=== PATIENT | female | born 1945 | race Caucasian/White ===

== ENCOUNTER 2018-12-27 12:58 | Day surgery (SDC) | payer OTHER ==
[2018-12-22 12:14] VITALS: BMI 29.0
[2018-12-27] MEDS: CYCLOPENTOLATE HCL 1% OPHTH SOLN 2 ML BOTTLE ONE ×2 (13:30→13:35)
[2018-12-27] MEDS: PHENYLEPHRINE 2.5% OPHTH SOLN 15 ML BOTTLE ONE ×3 (13:30→13:45)
[2018-12-27] MEDS: TROPICAMIDE 1% OPHTH SOLN 15 ML BOTTLE ONE ×3 (13:30→13:45)
[2018-12-27] MEDS: OFLOXACIN 0.3% OPHTHALMIC SOLUTION 5 ML BOTTLE ONE ×4 (13:30→13:45)
[2018-12-27] MEDS: KETOROLAC TROMETHAMINE 0.5% EYE DROP 1 DROP DROPS ONE ×3 (13:30→13:45)
[2018-12-27] MEDS ORDERED: TROPICAMIDE 1% OPHTH SOLN 15 ML BOTTLE OS ONE (13:40)
[2018-12-27] MEDS ORDERED: CYCLOPENTOLATE HCL 1% OPHTH SOLN 2 ML BOTTLE OS ONE ×2 (13:40→13:45)
[2018-12-27] MEDS ORDERED: PHENYLEPHRINE 2.5% OPHTH SOLN 15 ML BOTTLE OS ONE (13:40)
[2018-12-27] MEDS ORDERED: KETOROLAC TROMETHAMINE 0.5% EYE DROP 1 DROP DROPS OS ONE (13:40)
[2018-12-27] MEDS ORDERED: ACETAMINOPHEN 325 MG TABLET (FP) PO PRN (13:57)
[2018-12-27] MEDS ORDERED: BACITRACIN/POLYMYXIN OPH OINT 3.5 GM TUBE ONE (15:19)
[2018-12-27] MEDS ORDERED: EPI-SHUGARCAINE (EPINEPHRINE 0.025% & LIDOCAINE-PF 0.75%) 4ML ONE (15:19)
[2018-12-27] MEDS ORDERED: BETAXOLOL HCL 0.25% OPHTHALMIC 10 ML DROPSBTL ONE (15:19)
[2018-12-27] MEDS ORDERED: LIDOCAINE HCL/PF 2% SDV 5ML VIAL ONE (15:20)
[2018-12-27] MEDS ORDERED: BUPIVACAINE HCL/PF 0.5% (5MG/ML) 10 ML VIAL ONE (15:20)
[2018-12-27] MEDS ORDERED: ACETYLCHOLINE 1:100 INTRA-OCUL 20 MG/2 ML KIT ONE (15:20)
[2018-12-27] MEDS ORDERED: NEO/POLYMYX B SULF/DEXAMETH OPHTHALMIC 5ML BOTTLE ONE (15:20)
[2018-12-27] MEDS ORDERED: TETRACAINE 0.5% OPHTH SOLN 2 ML BOTTLE ONE (15:20)
[2018-12-27] MEDS ORDERED: LIDOCAINE HCL 2% JELLY 10 ML CARTRIDGE ONE (15:20)
[2018-12-27] MEDS ORDERED: MIDAZOLAM HCL 2 MG/2 ML SINGLE DOSE VIAL ONE (15:40)
[2018-12-27] MEDS ORDERED: PROPOFOL 20 ML ONE (15:46)
[2018-12-27] MEDS ORDERED: BSS (NA/CA/MG/K) BALANCED SALT SOLUTION OPHTH SOLN 15 ML BOTTLE ONE (15:57)
--- NOTE | 2018-12-27 17:01 | OP ---
DATE OF OPERATION: 12/27/2018 PROCEDURE: Planned extracapsular cataract extraction, phacoemulsification, insertion of posterior chamber lens implant, left eye. SURGEON: Aj Agustin MD AEMT SURGEON: Aj Agustin MD ANESTHESIA: Local with standby. ANESTHESIOLOGIST: Unknown at this point. PREOPERATIVE DIAGNOSIS: Mature cataract, left eye. POSTOPERATIVE DIAGNOSIS: Mature cataract, left eye. FINDINGS/PROCEDURE: After successful peribulbar anesthesia was given in the operating room, the patient was prepped and draped in the usual manner to expose the left eye. The lid speculum was inserted after the Tegaderm strips were placed on the lashes and the operating room microscope brought into position over the left eye. A superior fornix-based flap was then fashioned for 12 mm using Abbi scissors and 0.12 forceps and hemostasis with Wet-Field cautery. Limbal grill was fashioned for 3 mm with a crescent blade and dissected anterior into clear cornea then a 3-mm blade was used to enter the anterior chamber. Under Viscoat, a 360-degree anterior capsulotomy was performed and leaflet removed from the eye and phacoemulsification of the entire nucleus was then done in 1-1/2 minutes time followed by irrigation, aspiration of all cortical material leaving intact posterior capsule and red reflex present. The Provisc was injected into the posterior chamber to deepen the posterior capsule. The implant was inspected carefully with the microscope. Found to be free of defects, debris, and flaws, irrigated, folded, placed in the Provisc-filled cartridge. The cartridge was placed in the injector, and the implant was injected into the eye such that the inferior haptic was in the inferior capsular bag and superior haptic in the superior capsular bag. Then the Provisc was aspirated out. We placed in Miochol, Miostat, and BSS, and the wound was then closed with a single 10-0 Ethilon interrupted suture and tested for leakage, and none was found. The conjunctival tenon flap was reapproximated. At this point, the implant was fixated and the capsular bag centrally located with a round pupil, intact posterior capsule, and red reflex present. Topical Betoptic S and Maxitrol ophthalmic suspensions were placed as was bacitracin and polymyxin B ophthalmic ointment. The Tegaderm strips and lid speculum were removed from the lid. The lids were closed with a patch and shield placed on the eye, and the patient was then discharged from the operating room to the recovery area in good condition having tolerated the procedure well. AJ AGUSTIN M.D. [id number]
[2018-12-27 17:05] VITALS: TEMP 98.1
[2018-12-27 17:28] VITALS: BP 116/67; PULSE 48
== END 2018-12-27 17:25 | disposition home or self-care (01) ==
LOC: FASU 12:58
PROVIDERS: ATTEND Ophthalmology
PROC: 08RK3JZ Replacement of Left Lens with Synthetic Substitute, Percutaneous Approach (ICD-10-PCS; principal; 2018-12-27 15:55)
DX: H25.22 Age-related cataract, morgagnian type, left eye (principal)

== ENCOUNTER 2019-01-31 08:18 | Day surgery (SDC) | payer OTHER ==
[2019-01-24 15:23] VITALS: BMI 29.2
[2019-01-31] MEDS ORDERED: BACITRACIN/POLYMYXIN OPH OINT 3.5 GM TUBE ONE (08:44)
[2019-01-31] MEDS ORDERED: BETAXOLOL HCL 0.25% OPHTHALMIC 10 ML DROPSBTL ONE (08:44)
[2019-01-31] MEDS ORDERED: NEO/POLYMYX B SULF/DEXAMETH OPHTHALMIC 5ML BOTTLE ONE (08:44)
[2019-01-31] MEDS ORDERED: EPI-SHUGARCAINE (EPINEPHRINE 0.025% & LIDOCAINE-PF 0.75%) 4ML ONE (08:44)
[2019-01-31] MEDS ORDERED: TETRACAINE 0.5% OPHTH SOLN 2 ML BOTTLE ONE (08:44)
[2019-01-31] MEDS ORDERED: POVIDONE-IODINE 5% OPHTHALMIC PREP 30 ML SOLUTION ONE (08:44)
[2019-01-31] MEDS: KETOROLAC TROMETHAMINE 0.5% EYE DROP 1 DROP DROPS ONE ×4 (09:40→09:55)
[2019-01-31] MEDS: TROPICAMIDE 1% OPHTH SOLN 15 ML BOTTLE ONE ×4 (09:40→09:55)
[2019-01-31] MEDS: OFLOXACIN 0.3% OPHTHALMIC SOLUTION 5 ML BOTTLE ONE ×4 (09:40→09:55)
[2019-01-31] MEDS: PHENYLEPHRINE 2.5% OPHTH SOLN 15 ML BOTTLE ONE ×4 (09:40→09:55)
[2019-01-31] MEDS: CYCLOPENTOLATE HCL 1% OPHTH SOLN 2 ML BOTTLE ONE ×4 (09:40→09:55)
[2019-01-31] MEDS ORDERED: ACETAMINOPHEN 325 MG TABLET (FP) PO PRN (10:37)
[2019-01-31] MEDS ORDERED: PROPOFOL 20 ML ONE (11:02)
[2019-01-31] MEDS ORDERED: LIDOCAINE HCL/PF 2% SDV 5ML VIAL INF ONE (11:13)
[2019-01-31] MEDS ORDERED: BUPIVACAINE HCL/PF 0.5% (5MG/ML) 10 ML VIAL RB ONE (11:13)
[2019-01-31] MEDS ORDERED: LIDOCAINE HCL 2% JELLY 10 ML CARTRIDGE TP ONE (11:14)
[2019-01-31] MEDS ORDERED: BSS (NA/CA/MG/K) BALANCED SALT SOLUTION OPHTH SOLN 15 ML BOTTLE ONE (11:15)
[2019-01-31] MEDS ORDERED: BSS (NA/CA/MG/K) BALANCED SALT SOLUTION OPHTH SOLN 15 ML BOTTLE OD ONE ×2 (11:36→11:53)
[2019-01-31] MEDS ORDERED: CARBACHOL 0.01% INTRA-OCULAR 1.5 ML VIAL IO ONE ×2 (11:36→11:53)
[2019-01-31] MEDS ORDERED: BETAXOLOL HCL 0.25% OPHTHALMIC 10 ML DROPSBTL OD ONE ×2 (11:37→11:53)
[2019-01-31] MEDS ORDERED: NEO/POLYMYX B SULF/DEXAMETH OPHTHALMIC 5ML BOTTLE OD ONE ×2 (11:38→11:53)
[2019-01-31] MEDS ORDERED: NEOMYCIN/POLYMYX/HC OPHTHALMIC SUSPENSION 7.5 ML BOTTLE OD ONE (11:38)
[2019-01-31] MEDS ORDERED: BACITRACIN/POLYMYXIN OPH OINT 3.5 GM TUBE OD ONE ×2 (11:44→11:53)
[2019-01-31] MEDS ORDERED: ONDANSETRON 4 MG/2 ML VIAL IVPUSH PRN (13:13)
[2019-01-31] MEDS ORDERED: LACTATED RINGERS SOLUTION 1,000 ML IV SCH (13:15)
--- NOTE | 2019-01-31 13:36 | OP ---
DATE OF OPERATION: 01/31/2019 PROCEDURE: Planned extracapsular cataract extraction, phacoemulsification, insertion of posterior chamber lens implant, right eye. SURGEON: Aj Agustin MD [employer]ATION [employer] SURGEON: Aj Agustin MD COMPLICATIONS: None. PREOPERATIVE DIAGNOSIS: Cataract, right eye. POSTOPERATIVE DIAGNOSIS: Cataract, right eye. FINDINGS/PROCEDURE: After successful peribulbar anesthesia was given to the right eye and the patient was prepped and draped in the usual manner to expose the right eye, a lid speculum was inserted after the Tegaderm strips were placed on the lids and an operating room microscope brought into position over the eye. A superior fornix-based flap was then fashioned for 10 mm using Abbi scissors and 0.12 forceps and hemostasis achieved with Wet-Field cautery. Limbal grill was then fashioned for 3 mm with a crescent blade dissecting anteriorly into clear cornea and then a 3-mm blade was used to enter the anterior chamber. Then under Viscoat and Shugarcaine, a 360-degree anterior capsulotomy was performed then a leaflet removed from the eye. Phacoemulsification of the entire nucleus was then done in approximately 2 minutes time followed by irrigation and aspiration of all cortical material leaving intact posterior capsule and a red reflex present. The Provisc was injected to posterior chamber to deepen the posterior capsule and the implant was inspected carefully with the microscope. Found to be free of defects, debris, and flaws and irrigated thoroughly with BSS. The implant was folded and placed in the Provisc-filled cartridge. The cartridge placed in the injector, and the implant was injected into the eye such that the inferior haptic was in the inferior capsular bag and the superior haptic in the superior capsular bag and rotated in a horizontal position with a Sinskey hook. The Provisc was aspirated out. Replaced with Miochol, Miostat, and BSS. The wound was closed with a single interrupted 2-0 Ethilon suture, tested for leakage, and none was found. At this point, the implant was fixated in the capsular bag centrally. Round pupil intact, posterior capsule, and red reflex present. Conjunctival tenon flap was reapproximated, and topical Betoptic S and Maxitrol ophthalmic suspensions were placed as was bacitracin and polymyxin B ophthalmic ointment. The speculum was removed from the lids as was the Tegaderm. The lids were closed and a patch and shield placed on the eye and the patient was then discharged from the operating room to the recovery area in good condition having tolerated the procedure well. AJ AGUSTIN M.D. [id number]
[2019-01-31 14:15] VITALS: BP 128/71; PULSE 68; TEMP 97.8
== END 2019-01-31 13:00 | disposition home or self-care (01) ==
LOC: FASU 08:18
PROVIDERS: ATTEND Ophthalmology
PROC: 08RJ3JZ Replacement of Right Lens with Synthetic Substitute, Percutaneous Approach (ICD-10-PCS; principal; 2019-01-31 11:13)
DX: H26.9 Unspecified cataract (principal)